=== PATIENT | female | born 1970 | race Caucasian/White ===

== ENCOUNTER → 2025-06-01 10:14 | Outpatient (CLI) | payer OTHER, SELFPAY | PROVIDERS: PCP Physician Assistant; Visit Provider Physician Assistant | DX: R10.9 Unspecified abdominal pain (principal) | CPT/HCPCS: 87086 ==

== ENCOUNTER → 2025-06-15 11:50 | Outpatient (CLI) | payer OTHER, SELFPAY ==
--- NOTE | 2025-06-15 11:52 | DI.US.S_ITS ---
PROCEDURE: US ABDOMEN COMPLETE INDICATIONS: abdominal pain TECHNIQUE: Real-time scanning was performed of the abdominal and retroperitoneal organs, with image documentation. COMPARISON: None. FINDINGS: Liver: Liver is normal in size and homogeneous in echotexture. Gallbladder: No gallstones identified. Normal gallbladder wall. No pericholecystic fluid. Negative sonographic Broussard sign. Biliary ducts: Intrahepatic bile ducts are non-dilated. Extrahepatic bile duct caliber measures 3 mm. Normal is 6-7 mm or less in diameter, or 10 mm or less post-cholecystectomy. Pancreas: Visualized portions of the pancreas are sonographically normal. Spleen: Spleen is normal in size and homogeneous in echotexture. Kidneys: Kidneys are normal in size and echotexture. Right kidney measures 10 cm long; left kidney measures 10.5 cm long. No hydronephrosis or nephrolithiasis. No solid masses. Increased echogenicity involving the renal pyramids bilaterally. Aorta: Visualized aorta is normal in caliber at less than 3 cm. Iliacs: Proximal common iliac arteries are normal in caliber at less than 2.5 cm. IVC: Intrahepatic inferior vena cava is patent. Miscellaneous: No free abdominal fluid. IMPRESSION: 1. No source for abdominal pain identified. 2. 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 Recommend further evaluation with MRI of the abdomen with and without contrast (renal protocol). Dictated by: Manny Chatterjee [facility] Interpreted: Jayson Adrian MD on 06/15/2025 at 15:18 Transcribed by: CARINA on 06/15/2025 at 15:19 Approved by: Jayson Adrian M.D. on 06/15/2025 at 17:17
== END ==
LOC: US 11:51
PROVIDERS: PCP Physician Assistant; Referring Provider Physician Assistant; Visit Provider Physician Assistant
DX: R10.9 Unspecified abdominal pain (principal); Z90.710 Acquired absence of both cervix and uterus
CPT/HCPCS: 76700

== ENCOUNTER → 2025-06-15 13:15 | Outpatient (CLI) | payer OTHER, SELFPAY ==
--- NOTE | 2025-06-15 13:15 | DI.US.S_ITS ---
PROCEDURE: US PELVIC COMPLETE INDICATIONS: PAIN TECHNIQUE: Real-time scanning was performed of the pelvic organs, with image documentation. Additional endovaginal scanning was necessary due to incomplete visualization of the adnexal and endometrial structures by transabdominal scanning. COMPARISON: None. FINDINGS: Uterus: Surgically absent. Ovaries: The ovaries are not seen. Other: No pathologic free abdominal or pelvic fluid. No abnormality is seen within the left lower quadrant area of pain. There appears to be debris within the urinary bladder. IMPRESSION: Status post hysterectomy. The ovaries are not seen. No abnormalities are seen within the left lower quadrant area of pain. There appears to be debris within the urinary bladder, nonspecific and can be seen with cystitis, correlate with patient's symptoms and consider urinary analysis. We strive to produce accurate, complete, and clear reports of imaging services. To assist us in improving patient care, this report was composed using standard report templates and voice recognition software. Therefore, it may contain abnormal punctuation, insertions and/or omissions. Occasional wrong-word or sound-alike substitutions may occur. Though we review the report and make efforts to correct it, we do recommend that the report be read carefully in proper context to recognize any text inaccuracies. Dictated by: Antonio Mathis M.D. on 06/15/2025 at 14:11 Approved by: Antonio Mathis M.D. on 06/15/2025 at 14:12
== END ==
PROVIDERS: PCP Physician Assistant; Referring Provider Physician Assistant; Visit Provider Physician Assistant
DX: R10.9 Unspecified abdominal pain (principal); R10.20 Pelvic and perineal pain unspecified side; Z90.710 Acquired absence of both cervix and uterus
CPT/HCPCS: 76700; 76830; 76856